=== PATIENT | female | born 1965 | race Caucasian/White ===

== ENCOUNTER 2017-02-07 12:34 | Emergency (ER) | payer SELFPAY ==
[~2017-02-07] VITALS: Ht 154.9 cm; Wt 60.0 kg
[2017-02-07] MEDS ORDERED: OXYCODONE HCL/ACETAMINOPHEN 5/325MG TABLET PO ONE (13:15)
[2017-02-07 15:05] VITALS: BP 158/74
== END 2017-02-07 15:47 | disposition home or self-care (01) ==
LOC: ER 13:17
DX: M79.1 Myalgia (principal); M79.622 Pain in left upper arm; M79.604 Pain in right leg; R07.81 Pleurodynia; S89.101 Unspecified physeal fracture of lower end of right tibia; S82.831P Other fracture of upper and lower end of right fibula, subsequent encounter for closed fracture with malunion; X58.XXXA Exposure to other specified factors, initial encounter; V43.92XA Unspecified car occupant injured in collision with other type car in traffic accident, initial encounter; Y93.89 Activity, other specified; Y92.488 Other paved roadways as the place of occurrence of the external cause
CPT/HCPCS: 29515; 71010; 73060; 73590; 99284; Z7610